=== PATIENT | male | born 1990 | race Caucasian/White ===

== ENCOUNTER 2023-02-09 14:29 | Emergency (ER) | payer OTHER ==
[~2023-02-09] VITALS: Ht 177.8 cm; Wt 77.3 kg
[2023-02-09 14:41] VITALS: BP 135/81
[2023-02-09] MEDS ORDERED: rabies vaccine (PCEC)/PF 2.5 unit kit IMVAC ONE (14:50)
[2023-02-09] MEDS ORDERED: AMOX-117 PO (15:47)
== END 2023-02-09 15:54 | disposition home or self-care (01) ==
LOC: ER 14:31
DX: S51.859A Open bite of unspecified forearm, initial encounter (principal); W54.0XXA Bitten by dog, initial encounter; Y93.89 Activity, other specified; Y92.89 Other specified places as the place of occurrence of the external cause; Y99.8 Other external cause status
CPT/HCPCS: 90471; 90675; 99283

== ENCOUNTER 2023-02-12 14:15 | Emergency (ER) | payer OTHER ==
[~2023-02-12] VITALS: Ht 177.8 cm; Wt 77.3 kg
[~2023-02-12 14:15] MED LIST: AMOX-117 PO
[2023-02-12 14:24] VITALS: BP 114/70
[2023-02-12] MEDS ORDERED: rabies vaccine (PCEC)/PF 2.5 unit kit IMVAC ONE (16:55)
== END 2023-02-12 17:33 | disposition home or self-care (01) ==
LOC: ER 14:16
DX: S51.851D Open bite of right forearm, subsequent encounter (principal); T14.8XXD Other injury of unspecified body region, subsequent encounter; W54.0XXD Bitten by dog, subsequent encounter
CPT/HCPCS: 90471; 90675; 99281

== ENCOUNTER 2023-02-16 15:39 | Emergency (ER) | payer OTHER ==
[~2023-02-16] VITALS: Ht 177.8 cm; Wt 77.0 kg
[2023-02-16 15:53] VITALS: BP 111/67
[2023-02-16] MEDS ORDERED: rabies vaccine (PCEC)/PF 2.5 unit kit IMVAC ONE (16:15)
== END 2023-02-16 17:10 | disposition home or self-care (01) ==
LOC: ER 15:40
DX: S51.85 Open bite of forearm (principal); S21.259D Open bite of unspecified back wall of thorax without penetration into thoracic cavity, subsequent encounter; Z23 Encounter for immunization; W54.0XXD Bitten by dog, subsequent encounter
CPT/HCPCS: 90471; 90675; 99281

== ENCOUNTER 2023-02-23 14:56 | Emergency (ER) | payer OTHER ==
[~2023-02-23] VITALS: Ht 177.8 cm; Wt 77.0 kg
[2023-02-23 15:02] VITALS: BP 107/68
[2023-02-23] MEDS ORDERED: rabies vaccine (PCEC)/PF 2.5 unit kit IMVAC ONE (15:10)
== END 2023-02-23 15:32 | disposition home or self-care (01) ==
LOC: ER 14:57
DX: S51.851D Open bite of right forearm, subsequent encounter (principal); W54.0XXD Bitten by dog, subsequent encounter; Z79.899 Other long term (current) drug therapy
CPT/HCPCS: 90471; 90675; 99281

== ENCOUNTER 2023-03-21 23:51 | Emergency (ER) | payer BC, OTHER ==
[~2023-03-21] VITALS: Ht 177.8 cm; Wt 68.2 kg
[2023-03-22 01:13] VITALS: BP 147/69
[2023-03-22] MEDS ORDERED: acetaminophen 325mg tablet PO ONE (02:30)
[2023-03-22] MEDS ORDERED: ibuprofen tablet 400 MG TABLET PO ONE (02:30)
== END 2023-03-22 02:48 | disposition home or self-care (01) ==
LOC: ER 23:51
DX: M25.512 Pain in left shoulder (principal)
CPT/HCPCS: 73030; 99283